=== PATIENT | male | born 1975 ===

== ENCOUNTER 2016-10-20 09:32 | Emergency (ER) | payer SELFPAY ==
--- NOTE | 2016-10-20 10:33 | ED ---
Abdominal Pain/Male - HPI Summary HPI Summary: Patient presents to the ED with CC of diffuse lower abdominal pain with associated nausea x 1 week. Denies vomiting, diarrhea or constipation. Normal BM's. Denies abdominal surgeries or food allergies. Denies fever, sweats and chills. He has not changed his diet and states over the past year he has dropped 70lbs and states he is healthier now than ever. Denies any health problems and takes no medications. 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 Denies urinary symptoms, back pain or weakness. He has been able to go to to work all week, but with mild discomfort throughout the day intermittently. Discomfort is not better or worse with food, or time of day. - History of Current Complaint Chief Complaint: UCAbdominalPain Stated Complaint: ABD PAIN Time Seen by Provider: 10/20/16 10:02 Hx Obtained From: Patient Onset/Duration: Gradual Onset Timing: Intermittent, Lasting Minutes Severity Initially: Moderate Severity Currently: Moderate Pain Intensity: 5 Pain Scale Used: 0-10 Numeric Location: Diffuse Radiates: No Character: Other: - uncomortable Alleviating Factor(s): Nothing Associated Signs And Symptoms: Positive: Nausea - Risk Factors Testicular Torsion: Negative Cardiac Risk Factors: Negative - Allergies/Home Medications Allergies/Adverse Reactions: Allergies Allergy/AdvReac Type Severity Reaction Status Date / Time No Known Allergies Allergy Verified 10/20/16 09:47 Home Medications: Home Medications Cetirizine* [ZyrTEC 10 MG TAB*] 10 mg PO DAILY 10/20/16 [History Confirmed 10/20] PMH/Surg Hx/FS Hx/Imm Hx Previously Healthy: Yes GI History: Reports: Hx Ulcer - 17YRS AGO - Surgical History Surgery Procedure, Year, and Place: NOSE, TOE - Immunization History Hx Pertussis Vaccination: No Immunizations Up to Date: Unable to Obtain/Confirm Infectious Disease History: No Infectious Disease History: Denies: History Other Infectious Disease, Traveled Outside the [place] in Last 30 Days - Social History Occupation: Employed Full-time Lives: Alone Alcohol Use: Daily Alcohol Amount: ONE Hx Substance Use: No Substance Use Type: Reports: None Hx Tobacco Use: No Smoking Status (MU): Never Smoked Tobacco Do You Chew or Dip Tobacco: No Review of Systems Constitutional: Negative Negative: Fever, Fatigue ENT: Negative Cardiovascular: Negative Respiratory: Negative Positive: Abdominal Pain - diffuse, Nausea Genitourinary: Negative Positive: no symptoms reported, see HPI. Negative: burning, discharge Negative: Arthralgia, Myalgia Skin: Negative Negative: Headache, Weakness Psychological: Normal All Other Systems Reviewed And Are Negative: Yes Physical Exam Triage Information Reviewed: Yes Vital Signs On Initial Exam: Initial Vitals Temp Pulse Resp BP Pulse Ox 98.4 F 77 16 128/88 100 10/20/16 09:50 10/20/16 09:50 10/20/16 09:50 10/20/16 09:50 10/20/16 09:50 Vital Signs Reviewed: Yes Appearance: Positive: Well-Appearing, Well-Nourished Skin: Positive: Warm, Skin Color Reflects Adequate Perfusion Head/Face: Positive: Normal Head/Face Inspection Eyes: Positive: Normal, JUSTA Neck: Positive: Supple, No Lymphadenopathy Respiratory/Lung Sounds: Positive: Clear to Auscultation, Breath Sounds Present Cardiovascular: Positive: Pulses are Symmetrical in both Upper and Lower Extremities Abdomen Description: Positive: Soft, Other: - tednerness periumbilically. No tenderness over mcburney's point, negative wilkerson's sign, no CVA tenderness, no suprapubic tenderness Musculoskeletal: Positive: Normal, Strength/ROM Intact Neurological: Positive: Sensory/Motor Intact, Alert, Oriented to Person Place, Time, Speech Normal Psychiatric: Positive: Normal AVPU Assessment: Alert Diagnostics - Vital Signs Vital Signs Temp Pulse Resp BP Pulse Ox 10/20/16 09:50 98.4 F 77 16 128/88 100 - Laboratory Lab Statement: Any lab studies that have been ordered have been reviewed, and results considered in the medical decision making process. Abdominal Pain Fem Course/Dx - Course Course Of Treatment: On exam, tednerness periumbilically. No tenderness over mcburney's point, negative wilkerson's sign, no CVA tenderness, no suprapubic tenderness. Discussed treatment options. Patient is without insurance and would not like to go to the ED. I have discussed with him possibly cutting out gluten and dairy for a week or so and to evaluate for worsening symptoms. He is strongly encouraged to go to the ED immediately if any symptoms become worse and he agrees. He will try to change some of his diet and also eat a bland diet. He is also encouraged to go to the free clinic tomorrow afternoon and information is given to him. - Diagnoses Differential Diagnosis/HQI/PQRI: Appendicitis, Pancreatitis, Peptic Ulcer Disease Provider Diagnoses: Abdominal pain Discharge - Discharge Plan Condition: Stable Disposition: HOME Prescriptions: Ondansetron ODT TAB* [Zofran 4 MG Odt TAB*] 4 mg PO Q6H PRN #12 tab.odt MDD 4 PRN Reason: Nausea Patient Education Materials: Abdominal Pain (ED) Referrals: No Primary Care Phys,NOPCP [Primary Care Provider] - Additional Instructions: Try to avoid dairy and gluten [place] diet: Bananas, applesauce, chicken noodle soup, gluten-free bread, Rice If your symptoms become worse, go to the ED immediately Take Zofran as needed for nausea If you develop excessive burping, inability to pass gas, worsening abdominal pain or inability to have a bowel movement - go to the ED.
== END 2016-10-20 10:40 | disposition home or self-care (01) ==
LOC: UCEAST 09:32
DX: R10.30 Lower abdominal pain, unspecified (principal); Z87.11 Personal history of peptic ulcer disease
CPT/HCPCS: 99202; G0463